=== PATIENT | male | born 2000 | race Two or more races ===

== ENCOUNTER 2020-04-25 21:55 | Emergency (ER) | payer SELFPAY ==
--- NOTE | 2020-04-25 23:55 | ER Document Report ---
ED Medical Screen (RME) - General Chief Complaint: Weakness Stated Complaint: HOT FLASHES,CHILLS,MUSCLE ACHE Time Seen by Provider: 04/25/20 23:43 - HPI Notes: 04/25/20 23:50 19 year old male to the ED with C/O profound weakness and fatigue for the past two days. States that he is so tired and weak that he cannot even eat. STates he has had a concurrent fever with Tmax of 101. Also report sore throat. Denies cough, headache. ADmits to body aches. Denies SOB. Denies CP. Denies loss of taste or smell. States he has not been in contact with anyone who has tested positive for COVID 19. Admits that he did have about 10 people for Thanksgiving, all who he states was in his immediate household. Denies being out in stores. 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 States all he wants to do because he feels so weak is sleep at home. On brief medical screening exam, non toxic young man in no acute distress. He has clear lung to ausculation. Mild erythema to the posterior oropharynx but no exudate. Mildly dry mucosal membranes. I performed a medical screening exam on the patient and determined he will need further management by main side provider. I have placed initial orders to help in expediating his care. Physical Exam - Vital signs Vitals: Temp Pulse Resp BP Pulse Ox 98.9 F 88 20 138/73 H 97 04/25/20 22:34 04/25/20 22:34 04/25/20 22:34 04/25/20 22:34 04/25/20 22:34 Course - Vital Signs Vital signs: Temp Pulse Resp BP Pulse Ox 98.9 F 88 20 138/73 H 97 04/25/20 22:34 04/25/20 22:34 04/25/20 22:34 04/25/20 22:34 04/25/20 22:34
--- NOTE | 2020-04-26 00:15 | ER Document Report ---
ED General - General Chief Complaint: Weakness Stated Complaint: HOT FLASHES,CHILLS,MUSCLE ACHE Time Seen by Provider: 04/25/20 23:43 - HPI Notes: Patient is a healthy 19-year-old male who presents for body aches, chills, fevers. He states that symptoms have been present for several days. He recently went to [employer] dinner with family members in [place]. He denies any known Covid contacts. No chest pain or shortness of breath. No chest tightness. He denies cough. He states he had a fever yesterday of 101. He den ies any diarrhea or vomiting. No nausea. No loss of taste or smell. He has not taken anything for the muscle aches or fever. - Related Data Allergies/Adverse Reactions: No Known Allergies Allergy (Verified 04/26/20 01:12) Past Medical History - General Information source: Patient - Social History Smoking Status: Never Smoker Family History: Reviewed & Not Pertinent Review of Systems - Review of Systems Notes: CONSTITUTIONAL: Positive for fever and body aches. SKIN: No rash. HENT: No congestion, ear pain, or sore throat. EYES: No recent vision problems or eye pain. ENDOCRINE: No thyroid problems. No polyuria or polydipsia. CARDIOVASCULAR: No chest pain or edema. RESPIRATORY: No cough, shortness of breath, congestion, or wheezing. GASTROINTESTINAL: No abdominal pain, nausea, vomiting, bloody stools or diarrhea. . MUSCULOSKELETAL: No joint pain or swelling. LYMPHATIC: No swollen glands. NEUROLOGIC: No seizures. No headache, focal weakness or sensory changes. HEMATOLOGIC: No unusual bruising or bleeding. PSYCHIATRIC: No depression or anxiety. Physical Exam - Vital signs Vitals: Temp Pulse Resp BP Pulse Ox 98.9 F 88 20 138/73 H 97 04/25/20 22:34 04/25/20 22:34 04/25/20 22:34 04/25/20 22:34 04/25/20 22:34 - General General appearance: Appears well Notes: VITAL SIGNS: Within normal limits. GENERAL: No acute distress, non-toxic appearance. HEAD: Normal with no signs of head trauma. EYES: EOMI, conjunctiva normal, no discharge. EARS: Hearing grossly intact. NOSE: Normal. THROAT: Oropharynx is normal. NECK: Normal range of motion, no tenderness, supple, no lymphadenopathy, No adenopathy, no JVD. CHEST: Clear breath sounds bilaterally. No wheezes, rales, or rhonchi. CARDIAC: Regular rate and rhythm. S1 and S2, without murmurs, gallops, or rubs. VASCULAR: No Edema. Peripheral pulses normal and equal in all extremities. ABDOMEN: Normal and soft with no tenderness, no masses or pulsatile masses. MUSCULOSKELETAL: Good range of motion of all major joints. Extremities without clubbing, cyanosis or edema. NEUROLOGICAL: Alert and oriented x 3. No focal sensory or strength deficits. Speech normal. Follows commands appropriately. PSYCHIATRIC: Normal Affect, judgement and mood. SKIN: Normal appearance with no rashes or lesions. Course - Re-evaluation Re-evalutation: 04/26/20 02:00 Patient will be tested for Covid. His lab work is unremarkable. Chest x-ray was reviewed. Patient states he feels well. He declines any pain medicine. Patient will need to self isolate until he is called with a negative result. He was told to return immediately for any worsening symptoms. Patient verbalized understanding. 04/26/20 15:17 - Vital Signs Vital signs: Temp Pulse Resp BP Pulse Ox 99.7 F 78 20 135/73 H 100 04/26/20 01:40 04/26/20 01:40 04/25/20 22:34 04/26/20 01:40 04/26/20 01:40 - Laboratory Result Diagrams: 04/26/20 00:30 04/26/20 00:30 Laboratory results interpreted by me: 04/26/20 04/26/20 00:30 00:30 Plt Count 132 L Band Neutrophils % 1 L Monocytes % (Manual) 17 H Sodium 133.5 L - Diagnostic Test Radiology reviewed: Image reviewed, Reports reviewed Discharge - Discharge Clinical Impression: Suspected COVID-19 virus infection, Myalgia Fever Qualifiers: Fever type: unspecified Qualified Code(s): R50.9 - Fever, unspecified Condition: Stable Disposition: HOME, SELF-CARE Instructions: COVID-19 Guidance for Persons Under Investigation Additional Instructions: You have been tested for Covid. You must self isolate until you are called with a negative result. Please return to the ER for any shortness of breath or worsening symptoms.
[2020-04-26 01:11] LABS: ANION GAP 8 (5-19); BLOOD UREA NITROGEN 14 mg/dL (7-20); CALCIUM 9.3 mg/dL (8.4-10.2); CARBON DIOXIDE 27 mmol/L (22-30); CHLORIDE 99 mmol/L (98-107); GLUCOSE 89 mg/dL (75-110); POTASSIUM 3.8 mmol/L (3.6-5.0)
[2020-04-26 01:15] LABS: HEMATOCRIT 41.9 % (37.9-51.0); HEMOGLOBIN 14.3 g/dL (13.5-17.0); MEAN CORPUSCULAR HEMOGLOBIN 29.6 pg (27.0-33.4); MEAN CORPUSCULAR HGB CONC 34.1 g/dL (32.0-36.0); MEAN CORPUSCULAR VOLUME 87 fl (80-97); PLATELET COUNT 132 10^3/uL (150-450); RED BLOOD COUNT 4.84 10^6/uL (4.35-5.55); WHITE BLOOD COUNT 4.3 10^3/uL (4.0-10.5)
[2020-04-26 01:23] LABS: A TYPE INFLUENZA AG NEGATIVE (NEGATIVE); B INFLUENZA AG NEGATIVE (NEGATIVE)
[2020-04-26 01:34] LABS: ABSOLUTE LYMPHOCYTES# (MANUAL) 1.5 10^3/uL (0.5-4.7); ABSOLUTE MONOCYTES # (MANUAL) 0.7 10^3/uL (0.1-1.4); BAND NEUTROPHILS % (MANUAL) 1 % (3-5); BASOPHILS % (MANUAL) 0 % (0-2); EOSINOPHILS % (MANUAL) 0 % (0-6); LYMPHOCYTES % (MANUAL) 35 % (13-45); MONOCYTES % (MANUAL) 17 % (3-13); SEGMENTED NEUTROPHILS % (MAN) 46 % (42-78); TOTAL CELLS COUNTED 100
[2020-04-26 01:35] LABS: PLATELET COMMENT DECREASED; RBC MORPHOLOGY COMMENT NORMO-CYTIC/CHROMIC; TOXIC VACUOLATION PRESENT
[2020-04-26 01:50] VITALS: BP 135/73
--- NOTE | 2020-04-26 02:17 | RADIOLOGY REPORT (SQ) ---
EXAM DESCRIPTION: XR CHEST 1 VIEW COMPLETED DATE/TME: 04/26/2020 01:17 CLINICAL HISTORY: 19 years, Male, fever COMPARISON: None. NUMBER OF VIEWS: One TECHNIQUE: AP view the chest LIMITATIONS: None. FINDINGS: Lungs are clear. The heart is normal in size. No pneumothorax or pleural effusion. Bones are unremarkable IMPRESSION: No acute cardiopulmonary abnormality copyright 2011 [employer]- All Rights Reserved
[2020-04-26] MEDS ORDERED: ACETAMINOPHEN 325 MG TABLET ONE (02:28)
== END 2020-04-26 02:30 | disposition home or self-care (01) ==
LOC: ER 21:55
DX: U07.1 COVID-19 (principal); R50.9 Fever, unspecified; M79.10 Myalgia, unspecified site
CPT/HCPCS: 99284; 36415; 85025; 87635; 80048; 87804; 71045; C9803